=== PATIENT | female | born 1995 | race Caucasian/White ===

== ENCOUNTER 2020-06-25 12:09 | Emergency (ER) | payer OTHER ==
[~2020-06-25] VITALS: Ht 170.2 cm; Wt 90.7 kg
[2020-06-25 13:02] LABS: URINE BILIRUBIN NEGATIVE (Negative); URINE BLOOD 1+ (Negative); URINE CLARITY CLEAR; URINE COLOR YELLOW; URINE GLUCOSE-RANDOM* NEGATIVE (Negative); URINE KETONES NEGATIVE (Negative); URINE LEUKOCYTES-REFLEX NEGATIVE (Negative); URINE NITRITE-REFLEX NEGATIVE (Negative); URINE PROTEIN (DIPSTICK) NEGATIVE (Negative); URINE SPECIFIC GRAVITY 1.025 (1.005-1.035); URINE UROBILINOGEN 0.2 E.U./dl (0.2-1.0)
[2020-06-25 13:17] LABS: CASTS None Seen /LPF (None Seen); CRYSTALS None Seen /LPF (None Seen); SQUAMOUS >10 Many /LPF (0-3)
[2020-06-25 13:18] LABS: URINE RBC 0-2 Rare /HPF (0-2); URINE WBC-REFLEX 0-5 Rare /HPF (0-5)
[2020-06-25] MEDS ORDERED: NAPROXEN500 MG PO (15:06)
[2020-06-25 15:16] VITALS: BP 125/55
== END 2020-06-25 15:16 | disposition home or self-care (01) ==
LOC: ER 12:09
PROVIDERS: Emergency Medicine
DX: N83.201 Unspecified ovarian cyst, right side (principal); R31.9 Hematuria, unspecified; M79.7 Fibromyalgia; R35.0 Frequency of micturition; Z90.49 Acquired absence of other specified parts of digestive tract; Z91.048 Other nonmedicinal substance allergy status

== ENCOUNTER 2020-07-03 00:14 | Emergency (ER) | payer OTHER ==
[~2020-07-03] VITALS: Ht 170.2 cm; Wt 90.7 kg
[~2020-07-03 00:14] MED LIST: NAPROXEN500 MG PO
[2020-07-03] MEDS ORDERED: TYLENOL EXTRA500 MG PO (00:20)
[2020-07-03 01:10] LABS: URINE BILIRUBIN NEGATIVE (Negative); URINE BLOOD 3+ (Negative); URINE CLARITY CLEAR; URINE COLOR YELLOW; URINE GLUCOSE-RANDOM* NEGATIVE (Negative); URINE KETONES NEGATIVE (Negative); URINE LEUKOCYTES-REFLEX NEGATIVE (Negative); URINE NITRITE-REFLEX NEGATIVE (Negative); URINE PROTEIN (DIPSTICK) 1+ (Negative); URINE SPECIFIC GRAVITY >= 1.030 (1.005-1.035); URINE UROBILINOGEN 0.2 E.U./dl (0.2-1.0)
[2020-07-03 01:25] LABS: BACTERIA-REFLEX 1-9 Few /HPF (None Seen); CASTS None Seen /LPF (None Seen); CRYSTALS None Seen /LPF (None Seen); MUCUS 4-6 Moderate strn/LPF (None Seen); SQUAMOUS 4-10 Moderate /LPF (0-3); URINE RBC 3-10 Few /HPF (0-2); URINE WBC-REFLEX 0-5 Rare /HPF (0-5)
[2020-07-03] MEDS ORDERED: ULTRAM 50MG TAB50 MG PO (03:04)
[2020-07-03 03:24] VITALS: BP 110/74
== END 2020-07-03 03:24 | disposition home or self-care (01) ==
LOC: ER 00:14
PROVIDERS: Emergency Medicine
DX: N83.201 Unspecified ovarian cyst, right side (principal); M54.9 Dorsalgia, unspecified; M79.7 Fibromyalgia; R35.0 Frequency of micturition; R50.9 Fever, unspecified; Z91.048 Other nonmedicinal substance allergy status; Z90.49 Acquired absence of other specified parts of digestive tract; Z79.899 Other long term (current) drug therapy

== ENCOUNTER 2021-01-08 14:57 | Emergency (ER) | payer OTHER ==
[~2021-01-08 14:57] MED LIST changes: +TYLENOL EXTRA500 MG PO; +ULTRAM 50MG TAB50 MG PO
[2021-01-08 15:54] LABS: URINE BILIRUBIN NEGATIVE (Negative); URINE BLOOD TRACE (Negative); URINE CLARITY CLEAR; URINE COLOR YELLOW; URINE GLUCOSE-RANDOM* NEGATIVE (Negative); URINE KETONES NEGATIVE (Negative); URINE LEUKOCYTES-REFLEX NEGATIVE (Negative); URINE NITRITE-REFLEX NEGATIVE (Negative); URINE PROTEIN (DIPSTICK) NEGATIVE (Negative); URINE SPECIFIC GRAVITY 1.025 (1.005-1.035); URINE UROBILINOGEN 0.2 E.U./dl (0.2-1.0)
[2021-01-08 17:18] LABS: ABSOLUTE NEUTROPHILS 7.1 thou/uL (1.4-8.2); BASOPHILS 0.8 % (0.0-2.0); HEMATOCRIT 42.6 % (37.0-47.0); HEMOGLOBIN 14.1 gm/dL (12.0-15.0); LYMPHOCYTES 22.6 % (24.0-44.0); MCHC 33.1 g/dL (28.0-37.0); MCV 84.6 fL (80.0-100.0); MONOCYTES 4.8 % (1.0-8.0); PLATELET COUNT 358 thou/uL (150-400); POLYS 69.8 % (36.0-66.0); RBC 5.04 mil/uL (4.20-5.00); RDW 12.7 % (10.5-14.5); WBC 10.1 thou/uL (4.0-11.0)
[2021-01-08 17:35] LABS: CALCIUM 9.2 mg/dL (8.5-10.1); CREATININE 0.8 mg/dL (0.6-1.0)
[2021-01-08 17:41] LABS: ALBUMIN 3.7 g/dL (3.4-5.0); TOTAL BILIRUBIN 0.7 mg/dL (0.2-1.0); TOTAL PROTEIN 8.4 g/dL (6.4-8.2)
[2021-01-08] MEDS ORDERED: REGLAN 10 MG TA10 MG PO (18:30)
[2021-01-08 19:00] VITALS: BP 132/85
== END 2021-01-08 19:00 | disposition home or self-care (01) ==
LOC: ER 14:57
PROVIDERS: Emergency Medicine
DX: K56.7 Ileus, unspecified (principal); Z90.49 Acquired absence of other specified parts of digestive tract; Z79.899 Other long term (current) drug therapy; Z91.09 Other allergy status, other than to drugs and biological substances